=== PATIENT | male | born 1970 | race Caucasian/White ===

== ENCOUNTER 2018-10-07 20:17 | Inpatient (IN) | payer OTHER ==
[2018-10-07] MEDS ORDERED: Morphine 4 MG/ML VIAL (1 ml) 4 MG/ML VIAL IV ONE (21:15)
[2018-10-07] MEDS ORDERED: Ondansetron INJ* 2 MG/ML VIAL IV ONE (21:15)
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
[2018-10-07] MEDS ORDERED: Acetaminophen TAB* 325 MG PO PRN (21:49)
[2018-10-07] MEDS ORDERED: diPHENhydraMINE PO* 25 MG PO PRN (21:49)
[2018-10-07] MEDS ORDERED: Ondansetron INJ* 2 MG/ML VIAL IV PRN (21:49)
[2018-10-07 21:50] LABS: ABS Eosinophils 0.1 10^3/ul (0-0.6); ABS Lymphocytes 2.3 10^3/ul (1.0-4.8); ABS Neutrophils 7.7 10^3/ul (1.5-7.7); Eosinophil % 0.6 %; Hematocrit 44 % (42-52); Hemoglobin 15.4 g/dL (14.0-18.0); Lymphocyte % 20.9 %; Mean Corpuscular HGB Conc 35 g/dL (31-36); Mean Corpuscular Hemoglobin 35 pg (27-31); Mean Corpuscular Volume 99 fL (80-94); Mean Platelet Volume 6.7 fL (7.4-10.4); Platelet Count 276 10^3/uL (150-450); Red Blood Count 4.46 10^6 /uL (4.18-5.48); Red Cell Distribution Width 13 % (10-15); White Blood Count 11.1 10^3/uL (3.5-10.8)
[2018-10-07 21:59] LABS: Activated Partial Thrombo Time 33.2 seconds (26.0-38.0); INR 0.97 (0.82-1.09)
[2018-10-07 22:06] LABS: Albumin 4.5 g/dL (3.2-5.2); Albumin/Globulin Ratio 1.6 (1-3); C Reactive Protein 7.44 mg/L (<8.01); Calcium 9.5 mg/dL (8.6-10.3); EGFR African American 119.2 (>60); EGFR Non-African American 98.5 (>60); Globulin 2.8 g/dL (2-4); Potassium 3.7 mmol/L (3.5-5.0); Total Bilirubin 0.9 mg/dL (0.2-1.0); Total Protein 7.3 g/dL (6.4-8.9); Uric Acid 4.1 mg/dL (4.4-7.6)
[2018-10-07] MEDS ORDERED: cefTRIAXone(*) 1 GM in NS 0.9% 50 ML* 50 ML IVPB ONE (22:20)
[2018-10-07] MEDS ORDERED: Vancomycin(*) 1,250 MG in NS 0.9% 250 ML* 250 ML IVPB ONE (22:20)
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
[2018-10-07] MEDS: oxyCODONE/Acetamin 5/325 MG* TAB PO PRN (23:10)
[2018-10-07] MEDS: Lactated Ringers 1000 ML Bag* 1,000 ML IV SCH (23:15)
[2018-10-08] MEDS ORDERED: Vancomycin per Pharmacy* NOTE FOLLOW UP SCH (09:00)
[2018-10-08] MEDS: Morphine INJ* 2 MG/ML 1 ML SYRINGE (TWO MG - NEW SYRINGE VERSION) IV PRN ×2 (10:27→14:38)
[2018-10-08] MEDS ORDERED: Vancomycin(*) 1,500 MG in NS 0.9% 250 ML* 250 ML IVPB ONE (10:30)
--- NOTE | 2018-10-08 12:47 | PN ---
Progress Note - Progress Note Date of Service: 10/08/18 Note: I saw and examined Barrett. No pain with wrist ROM (limited at baseline). Still has pain with finger extension although ROM much improved.Still has swelling and erythema at dorsal wrist. TTP here as well. No pain with finger flexion. CRP WNL. WBC 11. Still awaiting MRI. Continue abx. Appreciate ID rec's. Yair Canseco MD
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
[2018-10-08] MEDS: oxyCODONE/Acetamin 5/325 MG* TAB PO PRN (14:45)
[2018-10-08 15:20] LABS: ABS Basophils 0.1 10^3/ul (0-0.2); ABS Eosinophils 0.1 10^3/ul (0-0.6); ABS Lymphocytes 1.3 10^3/ul (1.0-4.8); ABS Monocytes 0.7 10^3/ul (0-0.8); ABS Neutrophils 8.1 10^3/ul (1.5-7.7); Eosinophil % 0.7 %; Hematocrit 46 % (42-52); Hemoglobin 16.2 g/dL (14.0-18.0); Lymphocyte % 13.1 %; Mean Corpuscular HGB Conc 35 g/dL (31-36); Mean Corpuscular Hemoglobin 35 pg (27-31); Mean Corpuscular Volume 99 fL (80-94); Mean Platelet Volume 6.7 fL (7.4-10.4); Nucleated Red Blood Cells % 0.1; Platelet Count 272 10^3/uL (150-450); Red Blood Count 4.65 10^6 /uL (4.18-5.48); Red Cell Distribution Width 13 % (10-15); White Blood Count 10.2 10^3/uL (3.5-10.8)
[2018-10-08] MEDS ORDERED: oxyCODONE TAB* 5 MG TAB PO PRN (15:28)
[2018-10-08] MEDS ORDERED: Morphine INJ* 2 MG/ML 1 ML SYRINGE (TWO MG - NEW SYRINGE VERSION) IV PRN (15:29)
[2018-10-08 15:52] LABS: Activated Partial Thrombo Time 33.5 seconds (26.0-38.0); INR 0.99 (0.82-1.09)
[2018-10-08 16:00] LABS: EGFR African American 120.8 (>60); EGFR Non-African American 99.9 (>60)
[2018-10-08] MEDS: Heparin VIAL(*) 5000 UNITS/ML VIAL (FIVE THOUSAND) SUBCUT SCH ×2 (16:02→21:09)
[2018-10-08] MEDS: oxyCODONE TAB* 5 MG TAB PO PRN ×2 (17:10→21:08)
[2018-10-08] MEDS: Vancomycin(*) 1,250 MG in NS 0.9% 250 ML* 250 ML IVPB SCH (17:10)
[2018-10-09] MEDS: Lactated Ringers 1000 ML Bag* 1,000 ML IV SCH ×2 (00:50→14:43)
[2018-10-09] MEDS: Vancomycin(*) 1,250 MG in NS 0.9% 250 ML* 250 ML IVPB SCH ×2 (01:53→10:21)
[2018-10-09] MEDS: oxyCODONE TAB* 5 MG TAB PO PRN ×5 (02:09→23:39)
[2018-10-09] MEDS: Heparin VIAL(*) 5000 UNITS/ML VIAL (FIVE THOUSAND) SUBCUT SCH ×3 (05:19→21:24)
[2018-10-09 07:14] LABS: ABS Eosinophils 0.2 10^3/ul (0-0.6); ABS Lymphocytes 1.3 10^3/ul (1.0-4.8); ABS Monocytes 0.6 10^3/ul (0-0.8); ABS Neutrophils 4.9 10^3/ul (1.5-7.7); Eosinophil % 3.4 %; Hematocrit 44 % (42-52); Hemoglobin 15.5 g/dL (14.0-18.0); Lymphocyte % 18.4 %; Mean Corpuscular HGB Conc 35 g/dL (31-36); Mean Corpuscular Hemoglobin 35 pg (27-31); Mean Corpuscular Volume 100 fL (80-94); Mean Platelet Volume 6.8 fL (7.4-10.4); Nucleated Red Blood Cells % 0.1; Platelet Count 225 10^3/uL (150-450); Red Blood Count 4.39 10^6 /uL (4.18-5.48); Red Cell Distribution Width 13 % (10-15); White Blood Count 7.1 10^3/uL (3.5-10.8)
[2018-10-09 07:29] LABS: BUN/Creatinine Ratio 9.1 (8-20); C Reactive Protein 58.59 mg/L (<8.01); Calcium 9.1 mg/dL (8.6-10.3); EGFR African American 129.9 (>60); EGFR Non-African American 107.4 (>60)
[2018-10-09] MEDS ORDERED: Vancomycin Trough Check NOTE FOLLOW UP ONE (09:30)
--- NOTE | 2018-10-09 12:21 | PN ---
Progress Note - Progress Note Date of Service: 10/09/18 SOAP: Subjective: []Patient seen at bedside, still having diffuse dorsal hand and wrist pain. Overall he feels improved from the time of admission but about the luli e from yesterday. Denies fever or chills. Denies nausea, vomiting. Objective: [] Vital Signs Temp 98.6 F 10/09/18 11:02 Pulse 72 10/09/18 11:02 Resp 18 10/09/18 11:02 BP 119/74 10/09/18 11:02 Pulse Ox 98 10/09/18 11:02 Intake & Output 10/08/18 10/09/18 10/09/18 18:59 06:59 18:59 Intake Total 0 3397 Balance 0 3397 Weight 200 lb Intake: IV Fluids 937 LR 937 IVPB 760 ABX - VANCOMYCIN 760 Oral 0 1700 Other: Estimated Void Medium Medium # Voids 3 1 1 Laboratory Results - last 24 hr 10/08/18 10/08/18 10/08/18 15:13 15:13 15:13 WBC 10.2 RBC 4.65 Hgb 16.2 Hct 46 MCV 99 H MCH 35 H MCHC 35 RDW 13 Plt Count 272 MPV 6.7 L Neut % (Auto) 78.9 Lymph % (Auto) 13.1 Posey % (Auto) 6.8 Eos % (Auto) 0.7 Baso % (Auto) 0.5 Absolute Neuts (auto) 8.1 H Absolute Lymphs (auto) 1.3 Absolute Monos (auto) 0.7 Absolute Eos (auto) 0.1 Absolute Basos (auto) 0.1 Absolute Nucleated RBC 0.0 Nucleated RBC % 0.1 INR (Anticoag Therapy) 0.99 APTT 33.5 Sodium Potassium Chloride Carbon Dioxide Anion Gap BUN 7 Creatinine 0.82 Est GFR ( Amer) 120.8 Est GFR (Non-Af Amer) 99.9 BUN/Creatinine Ratio Glucose Calcium C-Reactive Protein Vancomycin Trough 10/09/18 10/09/18 10/09/18 07:02 07:02 09:30 WBC 7.1 RBC 4.39 Hgb 15.5 Hct 44 MCV 100 H MCH 35 H MCHC 35 RDW 13 Plt Count 225 MPV 6.8 L Neut % (Auto) 69.4 Lymph % (Auto) 18.4 Posey % (Auto) 8.4 Eos % (Auto) 3.4 Baso % (Auto) 0.4 Absolute Neuts (auto) 4.9 Absolute Lymphs (auto) 1.3 Absolute Monos (auto) 0.6 Absolute Eos (auto) 0.2 Absolute Basos (auto) 0.0 Absolute Nucleated RBC 0.0 Nucleated RBC % 0.1 INR (Anticoag Therapy) APTT Sodium 137 Potassium 4.0 Chloride 104 Carbon Dioxide 26 Anion Gap 7 BUN 7 Creatinine 0.77 Est GFR ( Amer) 129.9 Est GFR (Non-Af Amer) 107.4 BUN/Creatinine Ratio 9.1 Glucose 109 H Calcium 9.1 C-Reactive Protein 58.59 H Vancomycin Trough 9.7 Microbiology 10/07/18 21:40 Aerobic Blood Culture - Preliminary Blood Venous No Growth Day 1 Anaerobic Blood Culture - Preliminary No Growth Day 1 10/07/18 21:40 Aerobic Blood Culture - Preliminary Blood Venous No Growth Day 1 Anaerobic Blood Culture - Preliminary No Growth Day 1 Left hand and wrist with mild to moderate dorsal hand edema and mild erythema moving digits almost to baseline which limited at baseline, wrist motion baseline limited as well diffuse dorsal hand and wrist tenderness, no fluctuance palpated sensation intact distally Assessment: []Cellulitis left hand/ wrist vs abscess wrist Plan: []On IV Vanco with some improvement MRI done with noted scaphoid lunate dissociation and fluid collection radius/ carpal joint, no hand abscess seen White count improved but CRP elevated to 58.59 Dr. Canseco to re evaluated this evening, I&D possible pending his examination
[2018-10-09] MEDS: Vancomycin(*) 1,000 MG in NS 0.9% 250 ML* 250 ML IVPB SCH ×2 (16:35→21:24)
--- NOTE | 2018-10-09 17:15 | PN ---
Progress Note - Progress Note Date of Service: 10/09/18 Note: saw and examined pt. Doing much better. Reports much less pain. Improved swelling and motion On exam can fully extend and flex fingers to baseline level without pain. Wrist ROM at baseline per his report and also painless. Swelling and erythema improved. No longer any substantial TTP about wrist. Improving cellulitis dorsal left wrist. Possible d/c tomorrow on oral abx if continues to do well. Oral abx plan will be 2 weeks of oral doxycycline per d/w ID. Yair Canseco MD
[2018-10-09] MEDS ORDERED: NS 0.9% 250 ML* 250 ML ONE (21:22)
[2018-10-10] MEDS: oxyCODONE TAB* 5 MG TAB PO PRN (03:34)
[2018-10-10] MEDS: Vancomycin(*) 1,000 MG in NS 0.9% 250 ML* 250 ML IVPB SCH ×2 (03:35→09:41)
[2018-10-10] MEDS: Heparin VIAL(*) 5000 UNITS/ML VIAL (FIVE THOUSAND) SUBCUT SCH (05:46)
[2018-10-10 08:06] VITALS: BP 124/72
--- NOTE | 2018-10-10 10:18 | PN ---
Progress Note - Progress Note Date of Service: 10/10/18 SOAP: Subjective: Minimal to no pain. Feels close to baseline. Objective: Temp Pulse Resp BP Pulse Ox 98 F 93 20 124/72 97 10/10/18 08:06 10/10/18 08:06 10/10/18 08:06 10/10/18 08:06 10/10/18 08:06 NAD Painless wrist ROM Can fully extend and flex fingers to baseline level No TTP about hand or wrist Mild swelling and erythema, improved Assessment: Left wrist cellulitis, improving Plan: d/c home today on 2 week course of oral doxycycline per ID f/u later this week inc clinic for repeat check return to ER sooner if worsens, concerning symptoms reviewed Yair Canseco MD
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
[2018-10-11] MEDS ORDERED: Vancomycin Trough Check NOTE FOLLOW UP ONE (09:30)
== END 2018-10-10 11:21 | disposition home or self-care (01) | DRG 603 ==
LOC: ED 20:17 → SSU 21:49
PROVIDERS: ADMIT Orthopaedic Surgery; ATTEND Orthopaedic Surgery
DX: L03.114 Cellulitis of left upper limb (principal); F17.200 Nicotine dependence, unspecified, uncomplicated; M19.132 Post-traumatic osteoarthritis, left wrist; Z72.89 Other problems related to lifestyle; Z90.01 Acquired absence of eye; T14.90XS Injury, unspecified, sequela; V39 Occupant of three-wheeled motor vehicle injured in other and unspecified transport accidents
CPT/HCPCS: 36415; 80048; 80053; 80202; 82565; 83605; 84484; 84520; 84550; 85025; 85610; 85730; 86140; 86850; 86900; 86901; 87040; 93005; 99284; A9270-GY; J0696; J1644; J2270; J2405; J3370